=== PATIENT | female | born 2000 | race Two or more races ===

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

== ENCOUNTER 2021-11-25 13:01 | Emergency (ER) | payer SELFPAY ==
[2021-11-25] MEDS ORDERED: Sodium Chloride 0.9% 10 ML Syringe FLUSH PRN (13:21)
--- NOTE | 2021-11-25 13:37 | EDM.PDOC ---
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 Patient is primarily Cam[place]onian-speaking, so her does help translate. Patient is a G2, P1 and states she is about 13 or 14 weeks along in her . States that everything has been going well. Woke up this morning, and had some bright red blood on the bath tissue when she wiped. She became concerned for the wellbeing of her child so she comes to the ER for evaluation. Is also having some lower abdominal pain/discomfort, seems to be worse on the right lower abdomen. No nausea, vomiting, diarrhea or any other sick-like symptoms. 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 ED EXAM - Physical Exam Exam: See Below Exam Limited By: No Limitations General Appearance: Alert, WD/WN, No Apparent Distress Cardiovascular: Normal Peripheral Pulses, Regular Rate, Rhythm, No Edema, No Murmur GI/Abdominal Exam: Normal Bowel Sounds, Soft, Non-Tender, No Distention, No Mass Heart Tones: Not [place] Movement: Not Appreciated Neurological: Alert, Oriented, Normal Cognition, No Motor/Sensory Deficits Psychiatric: Normal Affect, Normal Mood Skin Exam: Warm, Dry, Intact, Normal Color, No Rash Course - Vital Signs Last Recorded V/S: Last Vital Signs Temp 98.0 F 11/25/21 16:50 Pulse 66 11/25/21 16:50 Resp 15 11/25/21 16:50 BP 100/62 11/25/21 16:50 Pulse Ox 100 11/25/21 16:50 - Orders/Labs/Meds Orders: Active Orders 24 hr Category Date Time Status OB Ltd 1 or More Fetus [US] Stat Exams 11/25/21 13:21 Taken RH IMMUNE GLOBULIN [BBK] Stat Lab 11/25/21 13:40 Results RHIG WORKUP, [BBK] Stat Lab 11/25/21 13:40 Results Peripheral IV Insertion Adult [OM.PC] Stat Oth 11/25/21 13:21 Ordered Labs: Laboratory Tests 11/25/21 11/25/21 11/25/21 Range/Units 13:25 13:40 13:40 WBC 11.72 H (3.98-10.04) K/mm3 RBC 4.40 (3.98-5.22) M/mm3 Hgb 12.5 D (11.2-15.7) gm/dl Hct 37.5 (34.1-44.9) % MCV 85.2 (79.4-94.8) fl MCH 28.4 (25.6-32.2) pg MCHC 33.3 (32.2-35.5) g/dl RDW Std Deviation 42.3 (36.4-46.3) fL Plt Count 314 (182-369) K/mm3 MPV 9.7 (9.4-12.3) fl Neut % (Auto) 79.7 H (34.0-71.1) % Lymph % (Auto) 13.4 L (19.3-51.7) % [place] % (Auto) 6.0 (4.7-12.5) % Eos % (Auto) 0.4 L (0.7-5.8) Baso % (Auto) 0.3 (0.1-1.2) % Neut # (Auto) 9.35 H (1.56-6.13) K/mm3 Lymph # (Auto) 1.57 (1.18-3.74) K/mm3 [place] # (Auto) 0.70 H (0.24-0.36) K/mm3 Eos # (Auto) 0.05 (0.04-0.36) K/mm3 Baso # (Auto) 0.03 (0.01-0.08) K/mm3 Urine Color Yellow (Yellow) Urine Appearance Clear (Clear) Urine pH 7.0 (5.0-8.0) Ur Specific [place] 1.015 (1.005-1.030) Urine Protein Negative (Negative) Urine Glucose (UA) Negative (Negative) Urine Ketones Negative (Negative) Urine Occult Blood Negative (Negative) Urine Nitrite Negative (Negative) Urine Bilirubin Negative (Negative) Urine Urobilinogen 0.2 (0.2-1.0) Ur Leukocyte Esterase Negative (Negative) Blood Type O NEGATIVE Gel Antibody Screen Negative Meds: Medications Discontinued Medications Generic Name Dose Route Start Last Admin Trade Name Freq PRN Reason Stop Dose Admin Sodium Chloride 10 ml 11/25/21 13:21 11/25/21 13:56 Sodium Chloride 0.9% 10 Ml Syringe FLUSH 10 ml ASDIRECTED PRN Administration Keep Vein Open - Re-Assessments/Exams Free Text/Narrative Re-Assessment/Exam: 11/25/21 13:36 Patient presents to the ER for evaluation of her vaginal bleeding in , we will go ahead and get an ultrasound, and some basic labs for initial rahul luation. 11/25/21 15:55 Labs are unremarkable, urinalysis negative for infection. I did get a call from [facility] and they stated that the ultrasound was within normal limits, no placental abruption was identified, and the fetus was well. I did discuss with the patient the results, and they were reassured and are willing to go home at this time and monitor her ongoing symptoms. 11/25/21 16:01 Patient's blood type is O-, I did call Dr. Carter ALCOHOLIC COUNSELOR on-call again she did recommend doing RhoGam if there was vaginal bleeding. This has been ordered. She will get this prior to discharge. 11/25/21 17:20 Official radiology read demonstrates a single living fetus heart rate 144 bpm appropriate amniotic fluid index, the size of the fetus measures at about 16 weeks 4 days, still little further along than she had anticipated. Placenta was somewhat low-lying but no sign of placental abruption. Departure - Departure Time of Disposition: 15:56 Disposition: Home, Self-Care 01 Condition: Good Clinical Impression: Vaginal bleeding before 22 weeks gestation - Discharge Information *PRESCRIPTION DRUG MONITORING PROGRAM REVIEWED*: No *COPY OF PRESCRIPTION DRUG MONITORING REPORT IN PATIENT CECILE: No Instructions: Vaginal Bleeding During , First Trimester, [id number] Referrals: PCP,Unknown [Primary Care Provider] - Forms: ED Department Discharge Additional Instructions: You were evaluated in the ER today regarding your abdominal pain/vaginal bleeding in . You did have some labs drawn, and these were within normal limits, O-. Due to your blood type being Rh-, you have been given RhoGam in the ER for your vaginal bleeding and . Your ultrasound demonstrated that your fetus was well and there were no malformations with your placenta. Recommend that you do not lift anything heavier than a gallon of milk (5 lbs), do not engage in sexual activities, try to get as much pelvic rest as possible for the next few days. Please try not to exert yourself, rest and relax, and take it easy. If you are bleeding through more than 1-2 maxi pads every couple hours, this would be cause for concern to return to the ER for immediate management. Please call/follow up with your ALCOHOLIC COUNSELOR on Saturday, for further evaluation management if warranted. Please return to the ED at any time if your symptoms change or worsen. Sepsis Event Note (ED) - Focused Exam Vital Signs: Vital Signs Temp Temp Pulse Resp BP Pulse Ox 11/25/21 16:50 98.0 F 66 15 100/62 100 11/25/21 13:27 97.5 F 89 15 110/65 99 - My Orders Last 24 Hours: My Active Orders 11/25/21 13:21 OB Ltd 1 or More Fetus [US] Stat Peripheral IV Insertion Adult [OM.PC] Stat 11/25/21 13:40 RH IMMUNE GLOBULIN [BBK] Stat RHIG WORKUP, [BBK] Stat - Assessment/Plan Last 24 Hours: My Active Orders 11/25/21 13:21 OB Ltd 1 or More Fetus [US] Stat Peripheral IV Insertion Adult [OM.PC] Stat 11/25/21 13:40 RH IMMUNE GLOBULIN [BBK] Stat RHIG WORKUP, [BBK] Stat
--- NOTE | 2021-11-27 09:04 | US ---
EXAM: US OB LIMITED LOCATION: [facility] DATE/TIME: 11/25/2021 2:00 PM INDICATION: Bleeding. COMPARISON: None. TECHNIQUE: Transabdominal and endovaginal ultrasound. FINDINGS: Single living fetus, variable presentation. HEART RATE: 144 bpm. BETH: 11.8. PLACENTA: Posterior. There is no previa but the inferior placental margin is 0.7 cm from the internal cervical os. No evidence of abruption. CERVIX: 2 cm in length. The cervix is closed. BIOMETRY: Biparietal Diameter: 3.4 cm, 16 weeks, 5 days Head Circumference: 12.8 cm, 16 weeks, 4 days Abdominal Circumference: 11.1 cm, 17 weeks, 0 days Femur Length: 2.2 cm, 16 weeks, 5 days IMPRESSION: 1. Single intrauterine gestation with a sonographic gestational age of 16 weeks 6 days corresponding to an estimated date of delivery of 05/06/2022. 2. Low-lying placenta with the inferior placental margin 7 mm from the internal cervical os. This will likely resolve as the progresses. 3. Cervical length of 2 cm. The cervix is closed. SIGNED BY: Dheeraj Gomes MD 11/25/2021 5:58 PM GAL
== END 2021-11-25 17:17 | disposition home or self-care (01) ==
LOC: JD.ED 13:01
DX: O20.9 Hemorrhage in early pregnancy, unspecified (principal); Z3A.16 16 weeks gestation of pregnancy
CPT/HCPCS: 36415; 76815; 76815-26; 81003; 85025; 86850; 86900; 86901; 99284-25; J2790

== ENCOUNTER 2022-05-09 12:50 | Inpatient (IN) | payer MEDICAID, OTHER ==
[~2022-05-09 12:50] MED LIST: Bupivacaine 0.25% 10 ML SDV ONE
[2022-05-09] MEDS ORDERED: Oxytocin/Lactated Ringers 10 UNIT/1,000 ML BAG IV SCH ×3 (14:00→23:28)
[2022-05-09] MEDS ORDERED: Nalbuphine HCl 10 MG/ 1ML Amp IVPUSH PRN (14:00)
[2022-05-09] MEDS ORDERED: Sodium Chloride 0.9% 10 ML Syringe FLUSH PRN (14:00)
[2022-05-09] MEDS: Lactated Ringers 1,000 ML IV SCH ×3 (14:08→18:36)
[2022-05-09] MEDS ORDERED: Bupivacaine/fentaNYL/NS 100 ML Bag EPIDUR PRN (16:07)
[2022-05-09] MEDS ORDERED: fentaNYL 100 MCG/2 ML SDV EPIDUR PRN (16:07)
[2022-05-09] MEDS ORDERED: ePHEDrine 50 MG/ML SDV IVPUSH PRN (16:07)
[2022-05-09] MEDS ORDERED: diphenhydrAMINE 50 MG/ML SDV IVPUSH PRN (16:07)
[2022-05-09] MEDS ORDERED: Sodium Chloride 0.9% 10 ML Syringe FLUSH SCH (21:00)
[2022-05-09] MEDS ORDERED: Misoprostol 200 MCG Tab ONE (22:37)
[2022-05-09] MEDS ORDERED: Benzocaine/Menthol 20%-0.5% Spray 78 GM Cannister TOP PRN (23:28)
[2022-05-09] MEDS ORDERED: Witch Hazel Medicated Pads 40/Jar TOP PRN (23:28)
[2022-05-09] MEDS ORDERED: Docusate Sodium 100 MG Cap PO PRN (23:28)
[2022-05-09] MEDS ORDERED: Magnesium Hydroxide 400 MG/5 ML Susp 30 ML Cup PO PRN (23:28)
[2022-05-09] MEDS ORDERED: Acetaminophen 325 MG Tab PO PRN (23:28)
[2022-05-09] MEDS ORDERED: Hydrocortisone Acetate 25 MG Supp RECTAL PRN (23:28)
[2022-05-09] MEDS ORDERED: Misoprostol 100 MCG Tab PO ONE (23:30)
[2022-05-10] MEDS: Ibuprofen 600 MG Tab PO PRN ×2 (11:43→23:14)
[2022-05-10] MEDS: Prenatal Multivitamin with Calcium/Folic Acid/Iron Tab PO SCH (11:43)
[2022-05-11] MEDS: Prenatal Multivitamin with Calcium/Folic Acid/Iron Tab PO SCH (10:35)
== END 2022-05-11 11:45 | disposition home or self-care (01) | DRG 807 ==
LOC: JD.OBCHECK 12:50 → JD.OB 12:57 → JD.OBCHECK 14:00 → JD.OB 14:00 → OBSVTOIN 20:02 → JD.OB 05-10 04:57
PROVIDERS: ADMIT Obstetrics & Gynecology; ATTEND Obstetrics & Gynecology
PROC: 10E0XZZ Delivery of Products of Conception, External Approach (ICD-10-PCS; principal; 2022-05-09)
PROC: 10907ZC Drainage of Amniotic Fluid, Therapeutic from Products of Conception, Via Natural or Artificial Opening (ICD-10-PCS; 2022-05-09)
PROC: 3E0R3BZ Introduction of Anesthetic Agent into Spinal Canal, Percutaneous Approach (ICD-10-PCS; 2022-05-09)
DX: O69.81X0 Labor and delivery complicated by cord around neck, without compression, not applicable or unspecified (principal); Z37.0 Single live birth; Z3A.39 39 weeks gestation of pregnancy; O26.893 Other specified pregnancy related conditions, third trimester
CPT/HCPCS: 36415; 51701; 59025; 59409; 84112; 85025; 86592; A9270-GY; J2590; J3010; J3490; J7120